=== PATIENT | male | born 1995 | race Caucasian/White ===

== ENCOUNTER 2018-08-23 17:13 | Emergency (ER) | payer OTHER ==
[~2018-08-23] VITALS: Ht 180.3 cm; Wt 69.0 kg
[2018-08-23 17:27] VITALS: BP 131/84
--- NOTE | 2018-08-23 17:57 | NUR ---
LUNCH RN: PT TAKEN TO RAD
== END 2018-08-23 18:38 | disposition home or self-care (01) ==
LOC: ED 18:07
DX: S29.011A Strain of muscle and tendon of front wall of thorax, initial encounter (principal); V00.311A Fall from snowboard, initial encounter; Y93.89 Activity, other specified; Y92.89 Other specified places as the place of occurrence of the external cause; Y99.8 Other external cause status
CPT/HCPCS: 99283